=== PATIENT | male | born 1970 | race Caucasian/White ===

== ENCOUNTER 2022-06-10 15:29 | Inpatient (IN) ==
[2022-06-10] MEDS ORDERED: IOPAMIDOL 100 ML BOTTLE IV ONE (15:30)
[2022-06-10 16:21] LABS: POC Calcium, Ionized 1.06 (1.16-1.32); POC Creatinine 0.4 (0.6-1.2)
[2022-06-10] MEDS ORDERED: 0.9 % SODIUM CHLORIDE 1,000 ML IV ONE (16:42)
[2022-06-10 17:00] LABS: Basophils # (Auto) 0.05 K/mcL (0.00-0.30); Basophils % (Auto) 0.4 % (0.0-2.0); Eosinophils # (Auto) 0.07 K/mcL (0.00-0.70); Eosinophils % (Auto) 0.6 % (0.0-7.0); Hematocrit 48.3 % (40.1-51.0); Lymphocytes # (Auto) 1.61 K/mcL (1.50-4.80); Lymphocytes % (Auto) 13.5 % (15.5-49.0); Mean Cell Volume 88.5 fL (80.0-100.0); Mean Corpuscular HGB Conc 33.1 g/dL (31.0-36.0); Mean Platelet Volume 10.3 fL (8.8-12.5); Monocytes # (Auto) 0.61 K/mcL (0.10-0.90); Monocytes % (Auto) 5.1 % (1.0-12.0); Neutrophils % (Auto) 79.9 % (38.0-78.0); Platelet Count 275 K/mcL (140-440); RBC 5.46 M/mcL (4.63-6.08); Red Cell Distribution Width 12.8 % (11.5-14.5); WBC 11.9 K/mcL (4.5-11.0)
--- NOTE | 2022-06-10 17:00 | Cat Scan Report ---
CLINICAL INFORMATION: Perirectal abscess COMPARISON: None. TECHNIQUE: Following enteric contrast, 80 cc of Isovue-370 were injected intravenously, and 60 seconds later, 0.625 mm helical slices were obtained from the mid heart through the subtrochanteric regions. Following reconstruction, 2.5 mm sagittal, coronal and axial reformatted images were processed and reviewed at bone, lung and soft tissue windows. Five minutes later, 0.625 mm helical slices were obtained from the mid heart through the kidneys and viewed at soft tissue windows.The exam was performed using radiation dose optimization techniques including, but not limited to, automated exposure control, adjustment of the mA and/or kV according to patient size and use of iterative reconstruction technique. FINDINGS: The lung bases show scattered fibrosis and/or atelectasis.. No effusions. The visualized heart is grossly normal with moderate calcific plaque in the visualized coronary arteries right coronary artery and circumflex.. Abdominal images show the gallbladder is surgically absent. Intrahepatic and common bile ducts are normal caliber CBD is 5 mm. The liver, both kidneys, adrenal glands, spleen, pancreas and aorta, including aortic branches, are normal in size, configuration and attenuation without focal lesion. There is no free air, free fluid or adenopathy. Pelvic images show normal urinary bladder, prostate and seminal vesicles. There are surgical peri along the greater curvature of the stomach and bowel prior partial gastrectomy. The remaining stomach, small bowel and large bowel are unremarkable. The appendix is surgically absent. Bone windows chronic bilateral L5-S1 spondylolysis, but no evidence of spondylolisthesis.. A 6 cm subcutaneous abscess is seen in the right buttock region adjacent the right cleft. It extends the posterior perirenal soft tissues. IMPRESSION: 6 cm subcutaneous abscess in the right buttock region with extension into the posterior perianal region. L5-S1 atelectasis Interpreted and Authenticated by: Checo Crump 06/10/22
--- NOTE | 2022-06-10 17:11 | General Surg History&Physical ---
HPI History of Present Illness Patient information: Note initiated : 06/10/22 at 5:07 pm Service Date, if different from initiated Date: [] Patient: Alfonso Montero a 51 y/o M admitted on for referred for surgery. Chief Complaint: [] Chief complaint: Perirectal abscess History of present illness: Mr. Montero is a 51 year old M with history of 10 days of swelling of the right buttock. Patient was seen in the emergency room 2 days ago and I&D was done with removal of about 20 cc of pus. The wound was packed. He returns today to the minor care clinic complaining of increasing pain and swelling. Evaluation reveals an enlarging abscess impinging on the perianal space. He was transferred to the ER and CT shows a large perirectal abscess. Patient is admitted and will be treated with antibiotics tonight with plans for incision and drainage of the abscess under anesthesia in the a.m. He has not had previous episodes of perianal infection. He does have uncontrolled diabetes with blood sugars running in the 250-300 range. PFSH PFSH All Active Problems (Updated 06/10/22 @ 18:15 by Felicia Vega PA-C) Perianal abscess (Acute) Hypertension (Acute) Diabetes mellitus (Acute) Social History smoking status: Current every day smoker MEDS/ALLERGIES Home Medications and Allergies Home Medications Medication Instructions Recorded Confirmed Type acetaminophen 325 mg tablet 650 mg PO Q6H PRN Pain 05/06/22 06/10/22 History (Tylenol) aspirin 81 mg tablet,delayed 81 mg PO DAILY 05/06/22 06/10/22 History release bupropion HCl 150 mg tablet,12 hr 150 mg PO DAILY 05/06/22 06/10/22 History sustained-release empagliflozin 10 mg tablet 10 mg PO QDAY 05/06/22 06/10/22 History (Jardiance) ibuprofen 200 mg capsule 400 mg PO Q8H 05/06/22 06/10/22 History insulin glargine 100 unit/mL (3 40 unit subcut QPM 05/06/22 06/10/22 History mL) subcutaneous pen (Lantus Solostar U-100 Insulin) insulin lispro 100 unit/mL 11 unit subcut USEASDIRECTD 05/06/22 06/10/22 History subcutaneous cartridge (Humalog U-100 Insulin) lisinopril 20 mg tablet 20 mg PO QDAY 05/06/22 06/10/22 History metformin 1,000 mg tablet 1,000 mg PO BID 05/06/22 06/10/22 History omeprazole 20 mg capsule,delayed 20 mg PO QDAY 05/06/22 06/10/22 History release tramadol 50 mg tablet 50 mg PO Q8H PRN pain #20 tabs 06/06/22 06/10/22 Rx Allergies Allergy/AdvReac Type Severity Reaction Status Date / Time No Known Drug Allergies Allergy Verified 06/10/22 15:01 Physical Examination Vital Signs Vital signs: Temp Pulse Resp BP Pulse Ox O2 Del Method 98.0 F 88 19 136/83 95 Room Air 06/10/22 15:29 06/10/22 15:29 06/10/22 15:29 06/10/22 15:29 06/10/22 15:29 06/10/22 15:29 General physical appearance General physical exam: well nourished, severe distress, severe pain and chronically ill Eyes Eye exam: PERRL and normal ocular movement ENT ENT exam: normal nares, normal mucosa, no hearing loss and dentures (Edentulous with full dentures) Head Head exam IM: Present atraumatic, normal inspection and normocephalic Neck Neck exam: no masses, no bruits, trachea midline, no lymphadenopathy and no venous distension Cardiovascular Cardiovascular exam IM: Present normal rate and rhythm, RRR, +S1 and +S2; Absent JVD Respiratory Respiratory exam: normal expansion, normal respiratory effort and clear to auscultation Abdomen Abdomen: Present soft and non tender; Absent surgical scars, masses, guarding or distended Rectum Rectum: Present other (7 cm right perianal bulging mass) Integumentary Integumentary: Present no rash, no growths and no abnormal pigmentation Neurologic Neurologic: Present normal coordination and normal sensation Musculoskeletal Musculoskeletal: Present normal gait and normal posture Psychiatric Psychiatric: Present oriented to time, oriented to person, oriented to place, speech is normal and memory intact Results Labs 06/13/22 05:25 Labs: Abnormal lab results 06/10/22 06/10/22 Range/Units 16:16 16:25 WBC 11.9 H (4.5-11.0) K/mcL Neut % (Auto) 79.9 H (38.0-78.0) % Lymph % (Auto) 13.5 L (15.5-49.0) % Immature Gran # 0.06 H (0.00-0.05) K/mcl Absolute Neutrophils 9.51 H (1.80-8.00) K/mcL POC Creatinine 0.4 L (0.6-1.2) POC Glucose 349 H (70-105) POC WB Ioniz Calcium 1.06 L (1.16-1.32) All other labs normal. A/P Assessment and plan (1) Perianal abscess: Status: Acute (2) Hypertension: Status: Acute (3) Diabetes mellitus: Status: Acute Plan Admit to inpatient Zosyn 3.375 g IV every 6 hours Diabetic diet N.p.o. after midnight Accu-Cheks every 6 hours Sliding scale medium coverage every 6 hours Chest x-ray: EKG for preop evaluation Sepsis Sepsis Identified: No Time Spent With Patient Time: Total time spent is greater than 50% in coordination of care (as documented) at patient's floor/unit and/or counseling patient:
[2022-06-10 17:16] LABS: ALT/SGPT 19 U/L (<40); AST/SGOT 20 U/L (<40); Albumin 4.2 gm/dL (3.2-5.2); Alkaline Phosphatase 71 U/L (39-117); Bilirubin,Direct < 0.2 mg/dL (0-0.3); Bilirubin,Total 0.3 mg/dL (0.1-1.0); Globulin 2.7 gm/dL (2.2-3.7)
[2022-06-10] MEDS ORDERED: DEXTROSE 50% 50 ML VIAL IV PRN (17:36)
[2022-06-10] MEDS ORDERED: DEXTROSE 31 GM ORAL.SUSP PO PRN (17:36)
--- NOTE | 2022-06-10 17:37 | Emergency Department Note ---
HPI General Chief complaint: Skin/Abscess/Rash Stated complaint: referred for surgery Time Seen by Provider: 06/10/22 15:45 Source: patient Mode of arrival: ambulatory Limitations: no limitations History of Present Illness HPI Narrative: Narrative: This is a 51-year-old male who presents to the emergency department from [facility] for an abscess to the right buttock. This began last week. He was seen at [facility] and had an I&D performed. He was seen the following day and it was repacked. He was reevaluated today and it looked worse so he was sent to the emergency department. General surgery has also been consulted and recommend the patient's has a CT scan with contrast of the abscess. Patient states it is very painful. He is unable to sit down because of it. He has not had fevers, sweats, or chills. He has had some nausea. He denies abdominal pain. He is urinating normally. He has pain with bowel movements, but he is able to have bowel movements. Related Data Home Medications Medication Instructions Recorded Confirmed acetaminophen 325 mg tablet 650 mg PO Q6H PRN Pain 05/06/22 06/10/22 (Tylenol) aspirin 81 mg tablet,delayed 81 mg PO DAILY 05/06/22 06/10/22 release bupropion HCl 150 mg tablet,12 hr 150 mg PO DAILY 05/06/22 06/10/22 sustained-release empagliflozin 10 mg tablet 10 mg PO QDAY 05/06/22 06/10/22 (Jardiance) ibuprofen 200 mg capsule 400 mg PO Q8H 05/06/22 06/10/22 insulin glargine 100 unit/mL (3 40 unit subcut QPM 05/06/22 06/10/22 mL) subcutaneous pen (Lantus Solostar U-100 Insulin) insulin lispro 100 unit/mL 11 unit subcut USEASDIRECTD 05/06/22 06/10/22 subcutaneous cartridge (Humalog U-100 Insulin) lisinopril 20 mg tablet 20 mg PO QDAY 05/06/22 06/10/22 metformin 1,000 mg tablet 1,000 mg PO BID 05/06/22 06/10/22 omeprazole 20 mg capsule,delayed 20 mg PO QDAY 05/06/22 06/10/22 release Previous Rx's Medication Instructions Recorded tramadol 50 mg tablet 50 mg PO Q8H PRN pain #20 tabs 06/06/22 Allergies Allergy/AdvReac Type Severity Reaction Status Date / Time No Known Drug Allergies Allergy Verified 06/10/22 15:01 Review of Systems ROS ROS Narrative: Narrative: All systems ED: reviewed and negative except as stated. PFSH Narrative Patient History Narrative: Narrative: Medical/Surgical/Family History All Active Problems (Updated 06/10/22 @ 18:15 by Felicia Vega PA-C) Perianal abscess (Acute) Hypertension (Acute) Diabetes mellitus (Acute) Social History Smoking Status: Current every day smoker Exam Narrative Narrative: Narrative: General Limitations: no limitations General appearance: Present alert and grimacing ENT ENT: Present mucous membranes moist Respiratory Respiratory: Present normal lung sounds bilaterally Cardiovascular Cardiovascular: Present normal heart sounds Rectal Rectal: Present other (There is a large abscess on the left buttock just next to the rectum. It is draining purulent and bloody drainage.) Course Vital Signs Vital signs: Vital Signs Temperature 98.0 F 06/10/22 15:29 Pulse Rate 88 06/10/22 15:29 Respiratory Rate 19 06/10/22 15:29 Blood Pressure 136/83 06/10/22 15:29 Pulse Oximetry (%) 95 06/10/22 15:29 Oxygen Delivery Method Room Air 06/10/22 15:29 Temperature 98.0 F 06/10/22 15:29 Pulse Rate 88 06/10/22 15:29 Respiratory Rate 19 06/10/22 15:29 Blood Pressure 136/83 06/10/22 15:29 Pulse Oximetry (%) 95 06/10/22 15:29 Oxygen Delivery Method Room Air 06/10/22 15:29 [facility] Narrative Medical decision making narrative: Narrative: Abscess is consistent with perirectal abscess. CBC, Chem-8, and CT scan of the abdomen pelvis have been ordered. Prior to results being available Dr. Negron, general surgeon, arrived in the emergency department. He will admit this patient. White cell count is slightly elevated with a left shift. Blood sugars greater than 300. Patient was treated with 1 L of IV normal saline. CT scan 6 cm subcutaneous abscess in the right buttock region with extension into the posterior perianal region. Lab Data 06/10/22 16:25 Labs: Lab Results 06/10/22 06/10/22 06/10/22 Range/Units 16:16 16:25 16:25 WBC 11.9 H (4.5-11.0) K/mcL RBC 5.46 (4.63-6.08) M/mcL Hgb 16.0 (13.7-17.5) g/dL Hct 48.3 (40.1-51.0) % POC Hct 49.0 (41-55) MCV 88.5 (80.0-100.0) fL MCH 29.3 (26.0-34.0) pg MCHC 33.1 (31.0-36.0) g/dL RDW 12.8 (11.5-14.5) % Plt Count 275 (140-440) K/mcL MPV 10.3 (8.8-12.5) fL Immature Gran % (Auto) 0.5 (0.0-0.5) % Neut % (Auto) 79.9 H (38.0-78.0) % Lymph % (Auto) 13.5 L (15.5-49.0) % Parmer % (Auto) 5.1 (1.0-12.0) % Eos % (Auto) 0.6 (0.0-7.0) % Baso % (Auto) 0.4 (0.0-2.0) % Lymph # (Auto) 1.61 (1.50-4.80) K/mcL Parmer # (Auto) 0.61 (0.10-0.90) K/mcL Eos # (Auto) 0.07 (0.00-0.70) K/mcL Baso # (Auto) 0.05 (0.00-0.30) K/mcL Immature Gran # 0.06 H (0.00-0.05) K/mcl Absolute Neutrophils 9.51 H (1.80-8.00) K/mcL POC Sodium 136 (133-145) POC Potassium 4.0 (3.3-5.1) POC Chloride 102 (96-108) POC Total CO2 25.0 (22-30) POC BUN 10 (6-20) POC Creatinine 0.4 L (0.6-1.2) POC Glucose 349 H (70-105) POC WB Ioniz Calcium 1.06 L (1.16-1.32) Total Bilirubin 0.3 (0.1-1.0) mg/dL Direct Bilirubin < 0.2 (0-0.3) mg/dL AST 20 (<40) U/L ALT 19 (<40) U/L Alkaline Phosphatase 71 (39-117) U/L Total Protein 6.9 (5.9-8.4) gm/dL Albumin 4.2 (3.2-5.2) gm/dL Globulin 2.7 (2.2-3.7) gm/dL Discharge Plan Patient/Caregiver Discharge Instructions Pt seen by CORRECTIONAL MEDICINE PHYSICIAN/PA only: Yes Clinical Impression: Perianal abscess, Diabetes mellitus Patient Disposition: Xfer As Inpt ([facility]) Follow up with: Heather Lindo PA-C [Primary Care Provider] - Prescriptions: No Action tramadol 50 mg tablet 50 mg PO Q8H PRN (Reason: pain) Qty: 20 0RF lisinopril 20 mg tablet 20 mg PO QDAY Jardiance 10 mg tablet 10 mg PO QDAY aspirin 81 mg tablet,delayed release (DR/EC) 81 mg PO DAILY metformin 1,000 mg tablet 1,000 mg PO BID bupropion HCl 150 mg tablet sustained-release 12 hr 150 mg PO DAILY Humalog U-100 Insulin 100 unit/mL cartridge 11 unit subcut USEASDIRECTD insulin glargine [Lantus Solostar U-100 Insulin] 100 unit/mL (3 mL) insulin pen 40 unit subcut QPM omeprazole 20 mg capsule,delayed release(DR/EC) 20 mg PO QDAY ibuprofen 200 mg capsule 400 mg PO Q8H acetaminophen [Tylenol] 325 mg tablet 650 mg PO Q6H PRN (Reason: Pain)
[2022-06-10] MEDS: PIPERACILLIN SODIUM/TAZOBACTAM 3.375 GM in DEXTROSE 5% IN WATER 50 ML IV SCH ×2 (17:51→18:50)
--- NOTE | 2022-06-10 18:32 | XRay Report ---
CLINICAL INFORMATION: Preop COMPARISON: None. TECHNIQUE: Portable FINDINGS: The heart size, mediastinum and pulmonary vessels are unremarkable. The lungs are clear. There are no effusions. The bones and soft tissues are within normal limits. IMPRESSION: Normal chest. Interpreted and Authenticated by: Checo Crump 06/10/22
[2022-06-10 19:13] LABS: Hemoglobin A1C 12.4 % Hgb (4.0-6.0)
[2022-06-10] MEDS: HYDROmorphone 1 MG/ML SYRINGE IV PRN (19:18)
[2022-06-10] MEDS ORDERED: INSULIN LISPRO 1 UNIT/0.01 ML UNIT SQ SCH (21:00)
[2022-06-10] MEDS: INSULIN GLARGINE, HUMAN 1 UNIT/0.01 ML SQ SCH (22:15)
[2022-06-11] MEDS: PIPERACILLIN SODIUM/TAZOBACTAM 3.375 GM in DEXTROSE 5% IN WATER 50 ML IV SCH ×4 (00:09→16:34)
[2022-06-11] MEDS ORDERED: INSULIN LISPRO 1 UNIT/0.01 ML UNIT SQ ONE (00:41)
[2022-06-11] MEDS: INSULIN LISPRO 1 UNIT/0.01 ML UNIT SQ SCH ×5 (00:46→21:47)
[2022-06-11] MEDS: HYDROmorphone 1 MG/ML SYRINGE IV PRN ×2 (02:31→13:53)
[2022-06-11] MEDS ORDERED: SCOPOLAMINE 1 PATCH PATCH TOPICAL PRN (08:30)
[2022-06-11] MEDS ORDERED: IPRATROPIUM/ALBUTEROL 3 ML AMPUL.NEB NEB PRN ×2 (08:30→12:34)
[2022-06-11] MEDS ORDERED: LIDOCAINE HCL/PF 100 MG/5 ML SYRINGE IV ONE (11:46)
[2022-06-11] MEDS ORDERED: fentaNYL 100 MCG/2 ML VIAL IV ONE ×2 (11:46→12:52)
[2022-06-11] MEDS ORDERED: PROPOFOL 200 MG/20 ML VIAL IV ONE (11:46)
[2022-06-11] MEDS ORDERED: MIDAZOLAM 2 MG/2 ML VIAL ONE (11:46)
--- NOTE | 2022-06-11 12:21 | Brief Operative Note ---
Brief Operative Note Date of procedure: 06/11/22 Pre-op diagnosis: perianal abscess,R Post-op diagnosis: other (PERIANAL ABSCESS,R) Procedure: EXCISIONAL DEBRIDEMENT OF PERIANAL AND BUTTOCK ABSCESS,RIGHT Grafts/Implants: No Anesthesia: GLMA Findings: EXTENSIVE INFECTION AND FAT NECROSIS OF ABSCESS RIGHT PERIANAL SPACE EXTENDING INTO ROGHT MEDIAL BUTTOCK Complications: none Surgeon: Dagmar Negron Estimated blood loss (cc): 30 Specimens Removed/Pathology: other (NECRITIC TISSUE FROM RIGHT PERIANAL SPACE) Condition: stable Disposition: PACU
[2022-06-11] MEDS ORDERED: fentaNYL 100 MCG/2 ML VIAL IV PRN (12:34)
[2022-06-11] MEDS ORDERED: ONDANSETRON 4 MG/2 ML VIAL IV PRN (12:34)
[2022-06-11] MEDS ORDERED: HYDROmorphone 0.5 MG/0.5 ML SYRINGE IV PRN (12:34)
[2022-06-11] MEDS ORDERED: HYDROmorphone 0.5 MG/0.5 ML SYRINGE ONE (13:03)
[2022-06-11] MEDS: buPROPion 150 MG TAB.SR.12H PO SCH (13:53)
[2022-06-11] MEDS: LISINOPRIL 20 MG TABLET PO SCH (13:53)
[2022-06-11] MEDS: metFORMIN 500 MG TABLET PO SCH ×2 (16:34→16:44)
[2022-06-11] MEDS: INSULIN GLARGINE, HUMAN 1 UNIT/0.01 ML SQ SCH (21:46)
[2022-06-12] MEDS: PIPERACILLIN SODIUM/TAZOBACTAM 3.375 GM in DEXTROSE 5% IN WATER 50 ML IV SCH ×5 (00:12→23:25)
[2022-06-12] MEDS: INSULIN LISPRO 1 UNIT/0.01 ML UNIT SQ SCH ×6 (00:13→22:13)
[2022-06-12 06:27] LABS: Basophils # (Auto) 0.05 K/mcL (0.00-0.30); Basophils % (Auto) 0.4 % (0.0-2.0); Eosinophils # (Auto) 0.16 K/mcL (0.00-0.70); Eosinophils % (Auto) 1.2 % (0.0-7.0); Hematocrit 45.6 % (40.1-51.0); Hemoglobin 14.9 g/dL (13.7-17.5); Lymphocytes # (Auto) 2.58 K/mcL (1.50-4.80); Lymphocytes % (Auto) 19.1 % (15.5-49.0); Mean Cell Volume 88.5 fL (80.0-100.0); Mean Corpuscular HGB Conc 32.7 g/dL (31.0-36.0); Mean Platelet Volume 10.1 fL (8.8-12.5); Monocytes # (Auto) 0.61 K/mcL (0.10-0.90); Monocytes % (Auto) 4.5 % (1.0-12.0); Neutrophils % (Auto) 74.2 % (38.0-78.0); Platelet Count 280 K/mcL (140-440); RBC 5.15 M/mcL (4.63-6.08); Red Cell Distribution Width 12.8 % (11.5-14.5); WBC 13.5 K/mcL (4.5-11.0)
[2022-06-12] MEDS: buPROPion 150 MG TAB.SR.12H PO SCH (09:20)
[2022-06-12] MEDS: metFORMIN 500 MG TABLET PO SCH ×2 (10:03→17:42)
[2022-06-12] MEDS: LISINOPRIL 20 MG TABLET PO SCH (10:06)
--- NOTE | 2022-06-12 16:36 | General Surgery Progress Note ---
SUBJECTIVE Subjective Patient information: Note initiated : 06/12/22 at 4:33 pm Service Date, if different from initiated Date: [] Patient: Alfonso Montero 51 y/o M admitted on 06/10/22 for I&D Perirectal Abscess. Chief Complaint: [] Principal diagnosis: Perirectal abscess Interval history: Patient states that he feels much better. His pain is controlled. He has been afebrile. White blood count is 13.5. He is tolerating diet well. Constitutional Vitals: Vital Signs Temp Pulse Resp BP Pulse Ox O2 Del Method O2 Flow Rate 98.1 F 65 14 99/52 97 Room Air 2 06/12/22 07:38 06/12/22 07:38 06/12/22 07:38 06/12/22 07:38 06/12/22 07:38 06/12/22 07:38 06/11/22 12:56 Period Temp Pulse Resp BP Sys/Oliver Pulse Ox O2 Del Method O2 Flow Rate Last 24 Hr 97.5 F-98.1 F 65-75 14-16 99-112/50-68 94-98 Room Air-Room Air Intake and Output 06/12/22 06/12/22 06/12/22 03:59 11:59 19:59 Intake Total 489 62 7262 Output Total 950 Balance -651 39 4762 Intake & Output: Intake & Output 06/12/22 06/12/22 06/12/22 03:59 11:59 19:59 Intake Total 995 34 9408 Output Total 950 Balance -782 24 8183 Intake: IV 50 50 50 Zosyn 3.375 gm In Dextrose 5% 50 50 50 in Water 50 ml @ 100 mls/hr IV Q6H [facility] Rx#:[id number] Oral 675 1060 Output: Void Amount 950 Other: Meal Lunch Urine Appearance Clear Urine Color Yellow Urine Odor Normal GI/Abdominal Additional comments: The right medial buttock wound is draining dark blood and pus. The packing was removed and the base is clean. There is moderate induration around the border of the wound but this has not progressed since the postop. A/P Assessment and plan (1) Perianal abscess: Status: Acute (2) Diabetes mellitus: Status: Acute Plan Continue present antibiotics pending cultures Wound care nurse for daily dressing changes Time Spent With Patient Time: Total time spent is greater than 50% in coordination of care (as documented) at patient's floor/unit and/or counseling patient:
[2022-06-12] MEDS: HYDROmorphone 1 MG/ML SYRINGE IV PRN (17:04)
[2022-06-12] MEDS: INSULIN GLARGINE, HUMAN 1 UNIT/0.01 ML SQ SCH (20:15)
[2022-06-13] MEDS: INSULIN LISPRO 1 UNIT/0.01 ML UNIT SQ SCH ×5 (00:12→20:33)
[2022-06-13] MEDS: HYDROmorphone 1 MG/ML SYRINGE IV PRN ×4 (02:05→23:24)
[2022-06-13] MEDS: PIPERACILLIN SODIUM/TAZOBACTAM 3.375 GM in DEXTROSE 5% IN WATER 50 ML IV SCH ×4 (05:29→23:25)
[2022-06-13 06:16] LABS: Basophils # (Auto) 0.06 K/mcL (0.00-0.30); Basophils % (Auto) 0.6 % (0.0-2.0); Eosinophils # (Auto) 0.16 K/mcL (0.00-0.70); Eosinophils % (Auto) 1.7 % (0.0-7.0); Hematocrit 43.6 % (40.1-51.0); Hemoglobin 13.9 g/dL (13.7-17.5); Lymphocytes % (Auto) 27.5 % (15.5-49.0); Mean Cell Volume 90.1 fL (80.0-100.0); Mean Corpuscular HGB Conc 31.9 g/dL (31.0-36.0); Mean Platelet Volume 10.2 fL (8.8-12.5); Monocytes # (Auto) 0.63 K/mcL (0.10-0.90); Monocytes % (Auto) 6.7 % (1.0-12.0); Neutrophils % (Auto) 62.8 % (38.0-78.0); Platelet Count 240 K/mcL (140-440); RBC 4.84 M/mcL (4.63-6.08); Red Cell Distribution Width 12.8 % (11.5-14.5); WBC 9.5 K/mcL (4.5-11.0)
[2022-06-13] MEDS: LISINOPRIL 20 MG TABLET PO SCH (08:24)
[2022-06-13] MEDS: buPROPion 150 MG TAB.SR.12H PO SCH (08:24)
[2022-06-13] MEDS: metFORMIN 500 MG TABLET PO SCH ×2 (08:24→17:42)
--- NOTE | 2022-06-13 13:55 | General Surgery Progress Note ---
SUBJECTIVE Subjective Patient information: Note initiated : 06/13/22 at 1:54 pm Service Date, if different from initiated Date: [] Patient: Alfonso Montero 51 y/o M admitted on 06/10/22 for I&D Perirectal Abscess. Chief Complaint: [] Principal diagnosis: Perirectal abscess Interval history: Patient continues to improve. He states that he has much less. He is afebrile and his white blood count has returned to normal. Wound cultures are still positive for group B strep. He is on adequate antibiotic. Coverage Constitutional Vitals: Vital Signs Temp Pulse Resp BP Pulse Ox O2 Del Method O2 Flow Rate 98.3 F 68 16 132/70 98 Room Air 2 06/13/22 12:00 06/13/22 12:00 06/13/22 12:00 06/13/22 12:00 06/13/22 12:00 06/13/22 12:00 06/11/22 12:56 Period Temp Pulse Resp BP Sys/Oliver Pulse Ox O2 Del Method O2 Flow Rate Last 24 Hr 97.9 F-98.3 F 60-79 16-20 112-132/56-85 92-98 Room Air-Room Air Intake and Output 06/13/22 06/13/22 06/13/22 03:59 11:59 19:59 Intake Total 850 50 50 Output Total 400 500 Balance 450 -450 50 Weight 222 lb 1.6 oz Intake & Output: Intake & Output 06/13/22 06/13/22 06/13/22 03:59 11:59 19:59 Intake Total 850 50 50 Output Total 400 500 Balance 450 -450 50 Weight 222 lb 1.6 oz Intake: IV 50 50 50 Zosyn 3.375 gm In Dextrose 5% 50 50 50 in Water 50 ml @ 100 mls/hr IV Q6H [facility] Rx#:[id number] Oral 800 Output: Void Amount 400 500 Other: Urine Appearance Clear Clear Urine Color Yellow Yellow Urine Odor Normal Respiratory Respiratory exam: Present normal respiratory exam and CTAB Cardiovascular Cardiovascular exam: Present normal rate and rhythm, +S1 and +S2; Absent RRR GI/Abdominal GI/Abdominal exam: Present normal bowel sounds and soft; Absent distended Rectal Additional comments: Operative site right buttock is continuing to heal. He has started to develop more granulations. Necrotic tissues looks less A/P Assessment and plan (1) Perianal abscess: Status: Acute (2) Diabetes mellitus: Status: Acute Plan Continue present antibiotics Wound care nurse for daily dressing changes Sepsis Sepsis Identified: No Time Spent With Patient Time: Total time spent is greater than 50% in coordination of care (as documented) at patient's floor/unit and/or counseling patient:
[2022-06-13] MEDS: INSULIN GLARGINE, HUMAN 1 UNIT/0.01 ML SQ SCH (20:34)
[2022-06-14] MEDS: PIPERACILLIN SODIUM/TAZOBACTAM 3.375 GM in DEXTROSE 5% IN WATER 50 ML IV SCH ×4 (05:56→23:00)
[2022-06-14 06:11] LABS: Basophils # (Auto) 0.07 K/mcL (0.00-0.30); Basophils % (Auto) 0.7 % (0.0-2.0); Eosinophils # (Auto) 0.21 K/mcL (0.00-0.70); Eosinophils % (Auto) 2.2 % (0.0-7.0); Hematocrit 42.7 % (40.1-51.0); Hemoglobin 13.6 g/dL (13.7-17.5); Lymphocytes # (Auto) 3.04 K/mcL (1.50-4.80); Lymphocytes % (Auto) 31.6 % (15.5-49.0); Mean Cell Volume 90.7 fL (80.0-100.0); Mean Corpuscular HGB Conc 31.9 g/dL (31.0-36.0); Mean Platelet Volume 10.5 fL (8.8-12.5); Monocytes % (Auto) 6.2 % (1.0-12.0); Neutrophils % (Auto) 58.8 % (38.0-78.0); Platelet Count 244 K/mcL (140-440); RBC 4.71 M/mcL (4.63-6.08); Red Cell Distribution Width 12.9 % (11.5-14.5); WBC 9.6 K/mcL (4.5-11.0)
[2022-06-14 06:31] LABS: ALT/SGPT 17 U/L (<40); AST/SGOT 14 U/L (<40); Albumin 3.4 gm/dL (3.2-5.2); Albumin/Globulin Ratio 1.6 (1.0-2.3); Alkaline Phosphatase 49 U/L (39-117); Bilirubin,Direct < 0.2 mg/dL (0-0.3); Bilirubin,Total 0.2 mg/dL (0.1-1.0); Blood Urea Nitrogen 10 mg/dL (6-20); Calcium 8.6 mg/dL (8.6-10.4); Carbon Dioxide 27 mmol/L (22-30); Chloride 106 mmol/L (96-108); Globulin 2.1 gm/dL (2.2-3.7); Glomerular Filtration Rate 117; Glucose 136 mg/dL (70-105); Lactate Dehydrogenase 111 U/L (135-225); Phosphorous 3.7 mg/dL (2.5-4.5); Triglycerides 255 mg/dL (<150)
[2022-06-14] MEDS: metFORMIN 500 MG TABLET PO SCH ×2 (07:34→17:25)
[2022-06-14] MEDS: INSULIN LISPRO 1 UNIT/0.01 ML UNIT SQ SCH ×4 (07:35→20:50)
[2022-06-14] MEDS: buPROPion 150 MG TAB.SR.12H PO SCH (12:35)
[2022-06-14] MEDS: LISINOPRIL 20 MG TABLET PO SCH (12:35)
--- NOTE | 2022-06-14 12:43 | General Surgery Progress Note ---
SUBJECTIVE Subjective Patient information: Note initiated : 06/14/22 at 12:40 pm Service Date, if different from initiated Date: [] Patient: Alfonso Montero 51 y/o M admitted on 06/10/22 for I&D Perirectal Abscess. Chief Complaint: [] Principal diagnosis: Perirectal abscess Interval history: Patient continues to improve. His pain is well controlled. He has been afebrile. White blood count 9.6, hemoglobin 13.6, hematocrit 42.7, potassium BUN and creatinine are normal Constitutional Vitals: Vital Signs Temp Pulse Resp BP Pulse Ox O2 Del Method O2 Flow Rate 97.5 F 59 L 16 101/60 98 Room Air 2 06/14/22 03:55 06/14/22 07:58 06/14/22 03:55 06/14/22 07:58 06/14/22 07:58 06/14/22 07:58 06/11/22 12:56 Period Temp Pulse Resp BP Sys/Oliver Pulse Ox O2 Del Method O2 Flow Rate Last 24 Hr 97.5 F-98.4 F 59-73 16-16 101-137/60-80 96-99 Room Air-Room Air Intake and Output 06/14/22 06/14/22 06/14/22 03:59 11:59 19:59 Intake Total 750 50 Output Total 300 400 Balance 450 -350 Intake & Output: Intake & Output 06/14/22 06/14/22 06/14/22 03:59 11:59 19:59 Intake Total 750 50 Output Total 300 400 Balance 450 -350 Intake: IV 50 50 Zosyn 3.375 gm In Dextrose 5% 50 50 in Water 50 ml @ 100 mls/hr IV Q6H [facility] Rx#:[id number] Oral 700 Output: Void Amount 300 400 Other: Urine Appearance Clear Clear Urine Color Yellow Dark Yellow Stool Size Small Stool Color Brown Stool Consistency Soft # Bowel Movements 1 Neck Neck exam: Present normal inspection Respiratory Respiratory exam: Present normal respiratory exam and CTAB Cardiovascular Cardiovascular exam: Present normal rate and rhythm, RRR, +S1 and +S2; Absent JVD GI/Abdominal GI/Abdominal exam: Present normal bowel sounds and soft; Absent distended or tenderness Rectal Additional comments: Right perirectal and buttock abscess with continued healing and shallow-base. Necrotic tissue is significantly reduced. Induration is much improved A/P Assessment and plan (1) Perianal abscess: Status: Acute (2) Hypertension: Status: Acute (3) Diabetes mellitus: Status: Acute Plan Patient continues to do well will continue IV antibiotics with plans for discharge home on oral antibiotics tomorrow Sepsis Sepsis Identified: No Time Spent With Patient Time: Total time spent is greater than 50% in coordination of care (as documented) at patient's floor/unit and/or counseling patient:
[2022-06-14] MEDS: INSULIN GLARGINE, HUMAN 1 UNIT/0.01 ML SQ SCH (20:50)
[2022-06-14] MEDS: HYDROmorphone 1 MG/ML SYRINGE IV PRN (22:51)
[2022-06-15] MEDS: PIPERACILLIN SODIUM/TAZOBACTAM 3.375 GM in DEXTROSE 5% IN WATER 50 ML IV SCH ×2 (05:47→11:39)
[2022-06-15 06:20] LABS: ALT/SGPT 18 U/L (<40); AST/SGOT 13 U/L (<40); Albumin 3.4 gm/dL (3.2-5.2); Albumin/Globulin Ratio 1.5 (1.0-2.3); Alkaline Phosphatase 46 U/L (39-117); Bilirubin,Direct < 0.2 mg/dL (0-0.3); Bilirubin,Total 0.2 mg/dL (0.1-1.0); Blood Urea Nitrogen 10 mg/dL (6-20); Calcium 8.4 mg/dL (8.6-10.4); Carbon Dioxide 25 mmol/L (22-30); Chloride 105 mmol/L (96-108); Globulin 2.3 gm/dL (2.2-3.7); Glomerular Filtration Rate 126; Glucose 128 mg/dL (70-105); Lactate Dehydrogenase 124 U/L (135-225); Phosphorous 4.1 mg/dL (2.5-4.5); Triglycerides 240 mg/dL (<150); Uric Acid 3.8 mg/dL (2.5-8.0)
[2022-06-15] MEDS: INSULIN LISPRO 1 UNIT/0.01 ML UNIT SQ SCH ×2 (09:20→11:40)
[2022-06-15] MEDS: LISINOPRIL 20 MG TABLET PO SCH (09:20)
[2022-06-15] MEDS: buPROPion 150 MG TAB.SR.12H PO SCH (09:20)
[2022-06-15] MEDS: metFORMIN 500 MG TABLET PO SCH (09:20)
--- NOTE | 2022-06-15 13:28 | Discharge Summary ---
Discharge Provider Provider IMPORTANT FOLLOW-UP INFORMATION FOR PCP: Patient information: Note initiated : 06/15/22 at 1:19 pm Service Date, if different from initiated Date: [] Patient: Alfonso Montero 51 y/o M admitted on 06/10/22 for I&D Perirectal Abscess. Chief Complaint: [] Date of admission: 06/10/22 19:42 Discharge date: 06/15/22 Primary care physician: Heather Lindo Admitting clinician: Dagmar Negron Attending physician on admission: Dagmar Negron Consults: 06/10/22 17:18 Consult to Physician [CONS] Stat Comment: Consulting Provider: Dagmar Negron Reason For Exam: Physician to Consult Attending physician on discharge: Dagmar Negron Discharging clinician: Dagmar Negron COURSE Hospital Course Hospital course: 51-year-old male who presented with a 10-day history of painful mass of his right perirectal space and buttock. An attempt had been made to drain what was thought to be an abscess but was unsuccessful. He had been treated with antibiotics. Cultures performed with the initial I&D grew out beta strep. Patient was admitted and started on Zosyn. On 11 June wide excision of the abscess cavity was carried out. She had extensive necrosis of the tissues. wide debridement was performed. Patient has done well and be excised area is granulating in with minimal infection. Patient is stable for discharge home. Discharge diagnosis: Perianal and right buttock abscess Secondary discharge diagnosis: Uncontrolled diabetes mellitus Reason for admission: Perirectal abscess and uncontrolled diabetes Procedures: Wide excision of abscess right periAnal space and right buttock Pertinent studies/significant findings: CT of pelvis Complications: None Time Spent with Patient Time attestation: Total time spent providing and/or coordinating discharge services: Time spent: Less than 30 minutes Physical Examination Vital Signs Vital signs: Temp Pulse Resp BP Pulse Ox O2 Del Method O2 Flow Rate 98.0 F 60 16 130/82 100 Room Air 2 06/15/22 08:00 06/15/22 08:00 06/15/22 08:00 06/15/22 08:00 06/15/22 08:00 06/15/22 08:00 06/11/22 12:56 General physical appearance General physical exam: well developed, well nourished, no distress and moderate pain Eyes Eye exam: PERRL and normal ocular movement ENT ENT exam: normal mucosa Head Head exam IM: Present atraumatic, normal inspection and normocephalic Neck Neck exam: no masses, no bruits, trachea midline, no lymphadenopathy and no venous distension Cardiovascular Cardiovascular exam IM: Present normal rate and rhythm, RRR, +S1 and +S2; Absent gallop or JVD Respiratory Respiratory exam: normal expansion, normal respiratory effort and clear to auscultation Abdomen Abdomen: Present soft and non tender; Absent organomegaly Rectum Rectum: Present normal sphincter tone and other (Granulating operative site right medial buttock and perianal space) Integumentary Integumentary: Present no rash, no growths and no abnormal pigmentation Neurologic Neurologic: Present normal coordination and normal sensation Musculoskeletal Musculoskeletal: Present normal gait and normal posture Psychiatric Psychiatric: Present oriented to time, oriented to person, oriented to place, speech is normal and memory intact Discharge Plan Patient/Caregiver Discharge Instructions Activity: increase activity as tolerated Diet: Consistent Carbohydrate Prescriptions: New amoxicillin-pot clavulanate [Augmentin] 500-125 mg tablet 1 tab PO Q8H Qty: 30 0RF Continued tramadol 50 mg tablet 50 mg PO Q8H PRN (Reason: pain) Qty: 20 0RF lisinopril 20 mg tablet 20 mg PO QDAY Jardiance 10 mg tablet 10 mg PO QDAY aspirin 81 mg tablet,delayed release (DR/EC) 81 mg PO DAILY metformin 1,000 mg tablet 1,000 mg PO BID bupropion HCl 150 mg tablet sustained-release 12 hr 150 mg PO DAILY Humalog U-100 Insulin 100 unit/mL cartridge 11 unit subcut USEASDIRECTD insulin glargine [Lantus Solostar U-100 Insulin] 100 unit/mL (3 mL) insulin pen 40 unit subcut QPM omeprazole 20 mg capsule,delayed release(DR/EC) 20 mg PO QDAY ibuprofen 200 mg capsule 400 mg PO Q8H acetaminophen [Tylenol] 325 mg tablet 650 mg PO Q6H PRN (Reason: Pain) Prescription drug monitoring program results: PDMP not reviewed Follow Up Plan Follow up with: Heather Lindo PA-C [Primary Care Provider] - Dagmar Negron MD [Physician] - (Call the office tomorrow for an appointment in 1 week) Patient Disposition: Home, Self-Care Prognosis: Good Rehab Potential: Good I certify that the patient requires SNF services: No Overall status at discharge: patient is progressing back to baseline Discharge Orders: Discharge Order (Routine); Ordered 06/15/22 Ordered By: Dagmar Negron Pending Pending Pending: Resuscitation Status Full Code Diet Consistent Carbohydrate Diet Start ThuJun 11 1223 Bupropion HCl (Bupropion 150 Mg Tab.Sr.12h) 150 mg PO DAILY [facility] Last Admin: 06/15/22 09:20 Dose: 150 mg Documented By: Admin: 06/14/22 12:35 Dose: 150 mg Documented By: Admin: 06/13/22 08:24 Dose: 150 mg Documented By: Admin: 06/12/22 09:20 Dose: 150 mg Documented By: Admin: 06/11/22 13:53 Dose: 150 mg Documented By: [email or web address] Diagnostic Test (Pha) (Accu-Chek 1 Each Strip) 1 each FS ACHS [facility] Last Admin: 06/15/22 11:40 Dose: 1 each Documented By: Admin: 06/15/22 09:20 Dose: 1 each Documented By: Admin: 06/14/22 20:46 Dose: 1 each Documented By: Admin: 06/14/22 17:26 Dose: 1 each Documented By: Admin: 06/14/22 12:15 Dose: 1 each Documented By: Admin: 06/14/22 07:35 Dose: 1 each Documented By: Admin: 06/13/22 20:29 Dose: 1 each Documented By: Admin: 06/13/22 16:58 Dose: 1 each Documented By: Admin: 06/13/22 12:06 Dose: 1 each Documented By: Admin: 06/13/22 08:25 Dose: 1 each Documented By: Admin: 06/13/22 02:01 Dose: 1 each Documented By: Admin: 06/13/22 00:09 Dose: 1 each Documented By: Admin: 06/12/22 22:09 Dose: 1 each Documented By: Admin: 06/12/22 20:09 Dose: 1 each Documented By: Admin: 06/12/22 17:41 Dose: 1 each Documented By: Admin: 06/12/22 11:59 Dose: 1 each Documented By: Admin: 06/12/22 07:39 Dose: 1 each Documented By: LIBRADO Hydromorphone HCl (Hydromorphone 1 Mg/Ml Syringe) 1 mg IV Q2HP PRN; Protocol PRN Reason: Per Pain Protocol Last Admin: 06/14/22 22:51 Dose: 1 mg Documented By: Admin: 06/13/22 23:24 Dose: 1 mg Documented By: Admin: 06/13/22 18:04 Dose: 1 mg Documented By: Admin: 06/13/22 08:30 Dose: 1 mg Documented By: Admin: 06/13/22 02:05 Dose: 1 mg Documented By: Admin: 06/12/22 17:04 Dose: 1 mg Documented By: Admin: 06/11/22 13:53 Dose: 1 mg Documented By: Admin: 06/11/22 02:31 Dose: 1 mg Documented By: Admin: 06/10/22 19:18 Dose: 1 mg Documented By: SARAH Piperacillin Sod/Tazobactam (Sod 3.375 gm/ Dextrose) 50 mls @ 100 mls/hr IV Q6H MAGALIE; Protocol Last Admin: 06/15/22 11:39 Dose: 100 mls/hr Documented By: Infusion: 06/15/22 06:17 Dose: 100 mls/hr Documented By: Admin: 06/15/22 05:47 Dose: 100 mls/hr Documented By: Infusion: 06/14/22 23:40 Dose: 0 mls/hr Documented By: Admin: 06/14/22 23:00 Dose: 100 mls/hr Documented By: Infusion: 06/14/22 17:56 Dose: 100 mls/hr Documented By: Admin: 06/14/22 17:26 Dose: 100 mls/hr Documented By: Infusion: 06/14/22 13:04 Dose: 100 mls/hr Documented By: Admin: 06/14/22 12:34 Dose: 100 mls/hr Documented By: [email or web address] Infusion: 06/14/22 07:37 Dose: 0 mls/hr Documented By: Admin: 06/14/22 05:56 Dose: 100 mls/hr Documented By: Infusion: 06/14/22 00:05 Dose: 0 mls/hr Documented By: Admin: 06/13/22 23:25 Dose: 100 mls/hr Documented By: Infusion: 06/13/22 18:12 Dose: 100 mls/hr Documented By: [email or web address] Admin: 06/13/22 17:42 Dose: 100 mls/hr Documented By: [email or web address] Infusion: 06/13/22 12:35 Dose: 100 mls/hr Documented By: [email or web address] Admin: 06/13/22 12:05 Dose: 100 mls/hr Documented By: [email or web address] Infusion: 06/13/22 05:59 Dose: 100 mls/hr Documented By: [email or web address] Admin: 06/13/22 05:29 Dose: 100 mls/hr Documented By: [email or web address] Infusion: 06/13/22 00:05 Dose: 0 mls/hr Documented By: [email or web address] Admin: 06/12/22 23:25 Dose: 100 mls/hr Documented By: Infusion: 06/12/22 17:35 Dose: 0 mls/hr Documented By: Admin: 06/12/22 17:04 Dose: 100 mls/hr Documented By: Infusion: 06/12/22 12:43 Dose: 0 mls/hr Documented By: Admin: 06/12/22 12:12 Dose: 100 mls/hr Documented By: [email or web address] Infusion: 06/12/22 06:30 Dose: 0 mls/hr Documented By: [email or web address] Admin: 06/12/22 06:00 Dose: 100 mls/hr Documented By: [email or web address] Infusion: 06/12/22 00:42 Dose: 0 mls/hr Documented By: Admin: 06/12/22 00:12 Dose: 100 mls/hr Documented By: Infusion: 06/11/22 17:14 Dose: 0 mls/hr Documented By: Admin: 06/11/22 16:34 Dose: 100 mls/hr Documented By: Infusion: 06/11/22 12:03 Dose: 0 mls/hr Documented By: Admin: 06/11/22 11:33 Dose: 100 mls/hr Documented By: Infusion: 06/11/22 06:25 Dose: 0 mls/hr Documented By: Admin: 06/11/22 05:55 Dose: 100 mls/hr Documented By: Infusion: 06/11/22 00:39 Dose: 0 mls/hr Documented By: Admin: 06/11/22 00:09 Dose: 100 mls/hr Documented By: Infusion: 06/10/22 19:20 Dose: 0 mls/hr Documented By: Admin: 06/10/22 18:50 Dose: 100 mls/hr Documented By: SARAH Insulin Glargine (Insulin Glargine, Human 1 Unit/0.01 Ml) 40 unit SQ HS MAGALIE Last Admin: 06/14/22 20:50 Dose: 40 units Documented By: Admin: 06/13/22 20:34 Dose: 40 units Documented By: Admin: 06/12/22 20:15 Dose: 40 units Documented By: Admin: 06/11/22 21:46 Dose: 40 units Documented By: Admin: 06/10/22 22:15 Dose: 40 units Documented By: SABAS Insulin Human Lispro (Insulin Lispro 1 Unit/0.01 Ml Unit) 0 unit SQ ACHS MAGALIE; Protocol Last Admin: 06/15/22 11:40 Dose: 6 units Documented By: Admin: 06/15/22 09:20 Dose: Not Given Documented By: Admin: 06/14/22 20:50 Dose: 10 units Documented By: Admin: 06/14/22 17:26 Dose: 8 units Documented By: Admin: 06/14/22 12:35 Dose: 6 units Documented By: Admin: 06/14/22 07:35 Dose: 2 units Documented By: Admin: 06/13/22 20:33 Dose: 10 units Documented By: Admin: 06/13/22 16:59 Dose: 10 units Documented By: Admin: 06/13/22 12:05 Dose: 6 units Documented By: [email or web address] Admin: 06/13/22 08:24 Dose: 4 units Documented By: [email or web address] Admin: 06/13/22 00:12 Dose: 8 units Documented By: Admin: 06/12/22 22:13 Dose: 10 units Documented By: Admin: 06/12/22 20:14 Dose: 14 units Documented By: Admin: 06/12/22 17:41 Dose: 6 units Documented By: Admin: 06/12/22 11:59 Dose: 10 units Documented By: Admin: 06/12/22 07:39 Dose: 4 units Documented By: Admin: 06/11/22 21:47 Dose: 8 units Documented By: SABAS Lisinopril (Lisinopril 20 Mg Tablet) 20 mg PO QDAY [facility] Admin: 06/15/22 09:20 Dose: 20 mg Documented By: [email or web address] Admin: 06/14/22 12:35 Dose: 20 mg Documented By: Admin: 06/13/22 08:24 Dose: 20 mg Documented By: Admin: 06/12/22 10:06 Dose: Not Given Documented By: Admin: 06/11/22 13:53 Dose: 20 mg Documented By: JEFFREY Metformin HCl (Metformin 500 Mg Tablet) 1,000 mg PO BIDCC [facility] Admin: 06/15/22 09:20 Dose: 1,000 mg Documented By: [email or web address] Admin: 06/14/22 17:25 Dose: 1,000 mg Documented By: [email or web address] Admin: 06/14/22 07:34 Dose: 1,000 mg Documented By: Admin: 06/13/22 17:42 Dose: 1,000 mg Documented By: [email or web address] Admin: 06/13/22 08:24 Dose: 1,000 mg Documented By: [email or web address] Admin: 06/12/22 17:42 Dose: 1,000 mg Documented By: Admin: 06/12/22 10:03 Dose: Not Given Documented By: Admin: 06/11/22 16:44 Dose: Not Given Documented By: JEFFREY Empagliflozin [ Jardiance] 10 Mg Tablet 1 dose PO QDAY MAGALIE Last Admin: 06/15/22 09:21 Dose: Not Given Documented By: [email or web address] Admin: 06/14/22 12:36 Dose: Not Given Documented By: [email or web address] Admin: 06/13/22 08:25 Dose: Not Given Documented By: [email or web address] Admin: 06/12/22 10:04 Dose: Not Given Documented By: [email or web address] Shift Summary 06/15/22 01:46 Shift Summary by Ky Sanders Pt has rested fairly well tonight. RT buttock pain has been min - mostly 0/10 - PRN Dilaudid 1mg given x1 @ 2250. No N/V. 1x sm loose BM. Pt voiding QS per urinal. He is up AMB (I) in Rm - gait stable w/o device. Saline lock to his RT F/A - flushed & patent. RT buttock dressing changed on assessment after pt had a BM - C,D,I. - mesh briefs to hold ABD pad in place. VS - WNL on R.A.. He is A&O x4, calm, pleasant, & cooperative. Pt should D/C home later today. Initialized on 06/15/22 01:46 - END OF NOTE
--- NOTE | 2022-06-18 12:42 | Operative Note ---
DATE OF OPERATION: 06/11/2022 PREOPERATIVE DIAGNOSIS: Perianal abscess, right buttock. POSTOPERATIVE DIAGNOSIS: Perianal abscess, right buttock. PROCEDURE: Excisional debridement of perianal and right buttock abscess. SURGEON: Dagmar Negron M.D. FINDINGS: Extensive infection and fat necrosis of abscess right perianal space, extending into the right medial buttock. DESCRIPTION OF PROCEDURE: Under general anesthesia, the patient was placed in high lithotomy position. The area was prepped and draped. A needle aspiration of the abscess cavity revealed thick pus. It was sent for culture. The dome of the abscess was necrotic, so a wide excision was carried out to remove all of the necrotic tissue down to viable fatty tissue. Hemostasis was achieved. Copious irrigation was carried out. It appeared that the infectious process did not extend to the perianal space. It was elected just to pack it. It was packed with Exufiber gauze. This was covered with 4 x 4 gauze and ABD pad. The patient was taken out of lithotomy and was awakened. He was extubated and transferred to the postanesthetic care unit in satisfactory condition. LCS:dedrick Job ID: [id number] Doc ID: [id number] Dagmar Negron M.D.
== END 2022-06-15 14:30 | disposition home or self-care (01) | DRG 394 ==
LOC: ED 15:29 → MEDSUR 19:42
PROVIDERS: ADMIT Family Medicine Adult Medicine; ATTEND Family Medicine Adult Medicine